=== PATIENT | female | born 1990 | race Caucasian/White ===

== ENCOUNTER 2021-05-30 20:54 | Emergency (ER) | payer MEDICAID | END 2021-05-30 21:30 | disposition home or self-care (01) | LOC: ER1 20:54 | DX: Z20.822 Contact with and (suspected) exposure to COVID-19 (principal); Z90.49 Acquired absence of other specified parts of digestive tract; Z88.8 Allergy status to other drugs, medicaments and biological substances | CPT/HCPCS: 99284 ==